=== PATIENT | male | born 1990 | race Caucasian/White ===

== ENCOUNTER 2016-10-16 15:36 | Day surgery (SDC) | payer OTHER ==
--- NOTE | 2016-10-16 15:50 | EDM.PDOC ---
ED HPI GENERAL MEDICAL PROBLEM - General Chief Complaint: Upper Extremity Injury/Pain Stated Complaint: RIGHT PINKY FINGER AMPUTATION Time Seen by Provider: 10/16/16 15:49 - History of Present Illness INITIAL COMMENTS - FREE TEXT/NARRATIVE: 26-year-old male presents emergency room with a right pinky finger amputation. A couple hours prior to arrival the patient got his finger caught in a hydraulic valve. The tip of the finger cannot be recovered. Patient is uncertain of his last tetanus shot.. He last ate around in today and his last drink of water was just prior to the injury. Past medical history noncontributory unremarkable. Treatments COMMUNITY SERVICE REPRESENTATIVE: Reports: Other (see below) Other Treatments COMMUNITY SERVICE REPRESENTATIVE: soaking in saline solution Right 5-Little finger Pain Score (Numeric/FACES): 5 - Related Data Allergies Allergy/AdvReac Type Severity Reaction Status Date / Time No Known Allergies Allergy Verified 10/16/16 17:38 Home Meds: Home Meds . [No Known Home Meds] 10/16/16 [History] Past Medical History - Past Health History Medical/Surgical History: Denies Medical/Surgical History Social & Family History - Tobacco Use Smoking Status *Q: Current Every Day Smoker Years of Tobacco use: 2 Packs/Tins Daily: 0.1 - Caffeine Use Caffeine Use: Reports: Coffee, Energy Drinks, Soda, Tea - Recreational Drug Use Recreational Drug Use: No Review of Systems - Review of Systems Review Of Systems: See Below Constitutional: Reports: No Symptoms Respiratory: Reports: No Symptoms Cardiovascular: Reports: No Symptoms GI/Abdominal: Reports: No Symptoms Neurological: Reports: No Symptoms ED EXAM, GENERAL - Physical Exam Exam: See Below Exam Limited By: No Limitations General Appearance: Alert, No Apparent Distress Head: Atraumatic, Normocephalic Neck: Normal Inspection, Supple Respiratory/Chest: No Respiratory Distress, Lungs Clear, Normal Breath Sounds Cardiovascular: Regular Rate, Rhythm, No Edema, No Murmur Extremities: Other (Examination of the right pinky finger shows he amputation of the distal tuft proximal to the nailbed and nail matrix and distal to the DIPJ) Course - Vital Signs Last Recorded V/S: Last Vital Signs Temp 36.7 C 10/16/16 15:40 Pulse 88 10/16/16 18:03 Resp 18 10/16/16 18:03 BP 128/90 10/16/16 18:03 Pulse Ox 98 10/16/16 18:03 - Orders/Labs/Meds Orders: Active Orders 24 hr Category Date Time Status Patient Status [ADT] Stat ADT 10/16/16 17:41 Active Communication Order [RC] ASDIRECTED Care 10/16/16 17:24 Active Communication Order [RC] ROUTINE Care 10/16/16 19:17 Active Elevate Extremity [RC] CONTINUOUS Care 10/16/16 17:24 Active Head of Bed Elevation [RC] ASDIRECTED Care 10/16/16 17:24 Active Ready for Discharge [RC] PER UNIT ROUTINE Care 10/16/16 17:28 Active Turn, Cough, Deep Breathe [RC] .PRN Care 10/16/16 17:24 Active Vaccines to be Administered [RC] PER UNIT ROUTINE Care 10/16/16 16:11 Active Vital Signs [RC] PER UNIT ROUTINE Care 10/16/16 17:24 Active Fingers Fifth Digit Rt F9 [CR] Stat Exams 10/16/16 16:10 Taken Acetaminophen/oxyCODONE [Percocet 325-5 MG] Med 10/16/16 17:26 Active 1 - 2 tab PO Q4H PRN HYDROmorphone [Dilaudid] Med 10/16/16 17:26 Active 0.5 mg IVPUSH Q2H PRN Ketorolac [Toradol] Med 10/16/16 17:26 Active 30 mg IVPUSH Q6H PRN Morphine [MS Contin] Med 10/16/16 17:30 Active 15 mg PO ONETIME Ondansetron [Zofran] Med 10/16/16 17:26 Active 4 mg IVPUSH Q4H PRN cefTRIAXone [Rocephin] 1 gm Med 10/16/16 19:15 Pending Sodium Chloride 0.9% [Normal Saline] 100 ml IV ONETIME Ice Therapy [OM.PC] Routine Oth 10/16/16 17:24 Ordered Schedule Procedure [COMM] Routine Oth 10/16/16 17:24 Ordered Schedule Procedure [COMM] Stat Oth 10/16/16 17:14 Ordered Medication Orders Hydromorphone HCl (Dilaudid) 0.5 mg IVPUSH Q2H PRN PRN Reason: Pain (severe 7-10) Ceftriaxone Sodium 1 gm/ (Sodium Chloride) 100 mls @ 200 mls/hr IV ONETIME CARLOS Ketorolac Tromethamine (Toradol) 30 mg IVPUSH Q6H PRN PRN Reason: Pain (severe 7-10) Morphine Sulfate (Ms Contin) 15 mg PO ONETIME CARLOS Ondansetron HCl (Zofran) 4 mg IVPUSH Q4H PRN PRN Reason: Nausea/Vomiting Oxycodone/Acetaminophen (Percocet 325-5 Mg) 1 - 2 tab PO Q4H PRN PRN Reason: Pain (severe 7-10) Meds: Medications Generic Name Dose Route Start Last Admin Trade Name Freq PRN Reason Stop Dose Admin Hydromorphone HCl 0.5 mg 10/16/16 17:26 Dilaudid IVPUSH Q2H PRN Pain (severe 7-10) Ceftriaxone Sodium 1 gm/ 100 mls @ 200 mls/hr 10/16/16 19:15 Sodium Chloride IV ONETIME CARLOS Ketorolac Tromethamine 30 mg 10/16/16 17:26 Toradol IVPUSH Q6H PRN Pain (severe 7-10) Morphine Sulfate 15 mg 10/16/16 17:30 Ms Contin PO ONETIME CARLOS Ondansetron HCl 4 mg 10/16/16 17:26 Zofran IVPUSH Q4H PRN Nausea/Vomiting Oxycodone/Acetaminophen 1 - 2 tab 10/16/16 17:26 Percocet 325-5 Mg PO Q4H PRN Pain (severe 7-10) Discontinued Medications Generic Name Dose Route Start Last Admin Trade Name Freq PRN Reason Stop Dose Admin Bupivacaine HCl Confirm 10/16/16 17:31 10/16/16 18:52 Marcaine 0.25% Administered 10/16/16 17:32 6 ml Dose Administration 30 ml .ROUTE .STK-MED ONE Cefazolin Sodium Confirm 10/16/16 18:46 Ancef Administered 10/16/16 18:47 Dose 1 gm .ROUTE .STK-MED ONE Diphtheria/Tetanus/Acell Pertussis 0.5 ml 10/16/16 16:11 10/16/16 16:18 Boostrix IM 10/16/16 16:12 0.5 ml .ONCE ONE Administration Fentanyl Confirm 10/16/16 16:31 10/16/16 16:44 Sublimaze Administered 10/16/16 16:32 Not Given Dose 100 mcg .ROUTE .STK-MED ONE Fentanyl 50 mcg 10/16/16 16:40 10/16/16 16:41 Sublimaze IVPUSH 10/16/16 16:41 50 mcg ONETIME ONE Administration Fentanyl Confirm 10/16/16 17:49 Sublimaze Administered 10/16/16 17:50 Dose 100 mcg .ROUTE .STK-MED ONE Fentanyl Confirm 10/16/16 18:26 Sublimaze Administered 10/16/16 18:27 Dose 100 mcg .ROUTE .STK-MED ONE Cefazolin Sodium 1,000 mg/ 50 mls @ 200 mls/hr 10/16/16 16:34 10/16/16 16:55 Sodium Chloride IV 10/16/16 16:48 Not Given ONETIME ONE Cefazolin Sodium/Dextrose 1 gm 50 mls @ 100 mls/hr 10/16/16 16:49 10/16/16 16 :53 / Premix IV 10/16/16 17:18 100 mls/hr ONETIME ONE Administration Ceftriaxone Sodium 1 gm/ 100 mls @ 200 mls/hr 10/16/16 17:26 10/16/16 17:56 Sodium Chloride IV 10/16/16 17:55 200 mls/hr ONETIME ONE Administration Lactated Ringer's Confirm 10/16/16 19:08 Ringers, Lactated Administered 10/16/16 19:09 Dose 1,000 mls @ as directed .ROUTE .STK-MED ONE Iodine Confirm 10/16/16 17:35 10/16/16 18:50 Iodine 2% Mild Tincture Administered 10/16/16 17:36 9 ml Dose Administration 30 ml .ROUTE .STK-MED ONE Lidocaine HCl Confirm 10/16/16 17:47 Xylocaine-Mpf 0.5% Administered 10/16/16 17:48 Dose 50 ml .ROUTE .STK-MED ONE Midazolam HCl Confirm 10/16/16 17:49 Versed 1 Mg/Ml Administered 10/16/16 17:50 Dose 2 mg .ROUTE .STK-MED ONE Midazolam HCl Confirm 10/16/16 18:25 Versed 1 Mg/Ml Administered 10/16/16 18:26 Dose 2 mg .ROUTE .STK-MED ONE Midazolam HCl Confirm 10/16/16 18:37 Versed 1 Mg/Ml Administered 10/16/16 18:38 Dose 2 mg .ROUTE .STK-MED ONE Ondansetron HCl Confirm 10/16/16 19:02 Zofran Administered 10/16/16 19:03 Dose 4 mg .ROUTE .STK-MED ONE Sodium Bicarbonate Confirm 10/16/16 17:47 Sodium Bicarbonate 8.4% Administered 10/16/16 17:48 Dose 50 meq .ROUTE .STK-MED ONE - Re-Assessments/Exams Free Text/Narrative Re-Assessment/Exam: 10/16/16 17:39 X-ray examination was obtained. Case was discussed with Dr. Rebolledo who will irrigate debride and close this tonight.. Patient's tetanus was updated he received a gram of Ancef. Departure - Departure Time of Disposition: 17:52 Disposition: DC/Tfer to [facility] Clinical Impression: Partial traumatic transphalangeal amputation of finger - Discharge Information - My Orders Last 24 Hours: My Active Orders 10/16/16 16:10 Fingers Fifth Digit Rt F9 [CR] Stat 10/16/16 16:11 Vaccines to be Administered [RC] PER UNIT ROUTINE 10/16/16 17:41 Patient Status [ADT] Stat - Assessment/Plan Last 24 Hours: My Active Orders 10/16/16 16:10 Fingers Fifth Digit Rt F9 [CR] Stat 10/16/16 16:11 Vaccines to be Administered [RC] PER UNIT ROUTINE 10/16/16 17:41 Patient Status [ADT] Stat
[2016-10-16] MEDS ORDERED: Diphtheria,Pertussis(Acell),Tetanus Vaccine 0.5 ML SDV inactive IM ONE (16:11)
[2016-10-16] MEDS ORDERED: fentaNYL 100 MCG/2 ML SDV ONE ×3 (16:31→18:26)
[2016-10-16] MEDS ORDERED: fentaNYL 100 MCG/2 ML SDV IVPUSH ONE (16:40)
[2016-10-16] MEDS ORDERED: ceFAZolin 1 GM in Premix Bag 1 BAG IV ONE (16:49)
--- NOTE | 2016-10-16 17:23 | PCM.PREANE ---
Preanesthetic Assessment - Procedure Proposed Procedure: Repair left finger amputation - Anesthesia/Transfusion/Family Hx Anesthesia History: Prior Anesthesia Without Reaction Family History of Anesthesia Reaction: No Transfusion History: No Prior Transfusion(s) - Review of Systems General: No Symptoms Pulmonary: No Symptoms Cardiovascular: No Symptoms Gastrointestinal: No symptoms Neurological: No Symptoms Other: Reports: Easy Bleeding - Physical Assessment NPO Status Date: 10/16/16 NPO Status Time: 12:00 O2 Sat by Pulse Oximetry: 100 Respiratory Rate: 20 Vital Signs: Last Vital Signs Temp 36.7 C 10/16/16 15:40 Pulse 83 10/16/16 15:40 Resp 20 10/16/16 15:40 BP 139/98 H 10/16/16 15:40 Pulse Ox 100 10/16/16 15:40 Height: 1.73 m Weight: 68.039 kg ASA Class: 1 Mental Status: Alert & Oriented x3 Airway Class: Mallampati = 1 Dentition: Reports: Normal Dentition Thyro-Mental Finger Breadths: 3 Mouth Opening Finger Breadths: 3 ROM/Head Extension: Full Lungs: Clear to auscultation, Normal respiratory effort Cardiovascular: Regular Rate, Regular Rhythm - Allergies Allergies/Adverse Reactions: Allergies Allergy/AdvReac Type Severity Reaction Status Date / Time No Known Allergies Allergy Verified 10/16/16 15:48 - Blood Blood Available: No Product(s) Available: None - Anesthesia Plan Pre-Op Medication Ordered: None - Acknowledgements Anesthesia Type Planned: ISAAC Pt an Appropriate Candidate for the Planned Anesthesia: Yes Alternatives and Risks of Anesthesia Discussed w Pt/Guardian: Yes Pt/Guardian Understands and Agrees with Anesthesia Plan: Yes PreAnesthesia Questionnaire - Past Health History Medical/Surgical History: Denies Medical/Surgical History - SUBSTANCE USE Smoking Status *Q: Current Every Day Smoker Tobacco Use Within Last Twelve Months: Snuff/Dip Recreational Drug Use History: No - HOME MEDS Home Medications: Home Meds . [No Known Home Meds] 10/16/16 [History] - CURRENT (IN HOUSE) MEDS Current Meds: Current Medications Cefazolin Sodium/Dextrose 1 gm (/ Premix) 50 mls @ 100 mls/hr IV ONETIME ONE Stop: 10/16/16 17:18 Last Admin: 10/16/16 16:53 Dose: 100 mls/hr Discontinued Medications Diphtheria/Tetanus/Acell Pertussis (Boostrix) 0.5 ml IM .ONCE ONE Stop: 10/16/16 16:12 Last Admin: 10/16/16 16:18 Dose: 0.5 ml Fentanyl (Sublimaze) Confirm Administered Dose 100 mcg .ROUTE .STK-MED ONE Stop: 10/16/16 16:32 Last Admin: 10/16/16 16:44 Dose: Not Given Fentanyl (Sublimaze) 50 mcg IVPUSH ONETIME ONE Stop: 10/16/16 16:41 Last Admin: 10/16/16 16:41 Dose: 50 mcg Cefazolin Sodium 1,000 mg/ (Sodium Chloride) 50 mls @ 200 mls/hr IV ONETIME ONE Stop: 10/16/16 16:48 Last Admin: 10/16/16 16:55 Dose: Not Given
[2016-10-16] MEDS ORDERED: Ondansetron 4 MG/2 ML SDV IVPUSH PRN (17:26)
[2016-10-16] MEDS ORDERED: cefTRIAXone 1 GM in Sodium Chloride 0.9% 100 ML IV ONE ×2 (17:26→19:15)
[2016-10-16] MEDS ORDERED: Ketorolac 30 MG/ML SDV IVPUSH PRN (17:26)
[2016-10-16] MEDS ORDERED: HYDROmorphone 0.5 MG/0.5 ML Syringe IVPUSH PRN (17:26)
[2016-10-16] MEDS ORDERED: Acetaminophen/oxyCODONE 325-5 MG Tab PO PRN (17:26)
[2016-10-16] MEDS ORDERED: Morphine 15 MG Tab.ER PO SCH (17:30)
[2016-10-16] MEDS ORDERED: Bupivacaine 0.25% 30 ML SDV ONE (17:31)
[2016-10-16] MEDS ORDERED: Iodine/Sodium Iodide 2% Tincture 30 ML Bottle ONE (17:35)
[2016-10-16] MEDS ORDERED: Sodium Bicarbonate 8.4% 50 MEQ/50 ML SDV ONE (17:47)
[2016-10-16] MEDS ORDERED: Lidocaine 0.5% 50 ML SDV ONE (17:47)
[2016-10-16] MEDS ORDERED: Midazolam 1 MG/ML 2 ML SDV ONE ×3 (17:49→18:37)
[2016-10-16] MEDS ORDERED: ceFAZolin 1 GM Vial ONE (18:46)
[2016-10-16] MEDS ORDERED: Ondansetron 4 MG/2 ML SDV ONE (19:02)
[2016-10-16] MEDS ORDERED: Lactated Ringers 1,000 ML ONE (19:08)
--- NOTE | 2016-10-16 19:16 | PCM48HPAN ---
Post Anesthesia Note - EVALUATION WITHIN 48HRS OF ANESTHETIC Vital Signs in Normal Range: Yes Patient Participated in Evaluation: Yes Respiratory Function Stable: Yes Airway Patent: Yes Cardiovascular Function Stable: Yes Hydration Status Stable: Yes Pain Control Satisfactory: Yes Nausea and Vomiting Control Satisfactory: Yes Mental Status Recovered: Yes
[2016-10-16 20:21] VITALS: BP 124/84
--- NOTE | 2016-10-16 23:11 | HP ---
DATE OF ADMISSION: 10/16/2016 HISTORY OF PRESENT ILLNESS: This is the first orthopedic outpatient admission for surgery for this 26-year- old male, who is being admitted with acute crush injury with traumatic amputation of the distal tip of the right small finger with significant oil contamination. 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 immediately we brought to the emergency room, evaluated, orthopedic evaluation found the amputation and significant examination about the hand area and the patient stopped being scheduled for the surgical irrigation and debridement. Reconstruction of the amputation site of the right small finger. Procedure has been outlined to him. He understands the procedure and the and the complication especially with the potential for infection with this type of injury and has consented to the surgical procedure. ALLERGIES: No known drug allergies. PAST MEDICAL HISTORY: A healthy 26-year-old male. CURRENT MEDICATIONS: Currently on no medications. PAST SURGICAL HISTORY: Positive. He had a previous appendectomy. Notes no anesthesia or complications. REVIEW OF SYSTEMS: The patient is a nonsmoker and nondrinker. He has a negative bleeding history, negative blood clot history. PHYSICAL EXAMINATION: GENERAL: Today, reveals a well-developed, well-nourished, 26-year-old male, in mvalcuts-yh-bmbhdi distress. HEAD, EYES, EARS, NOSE, AND THROAT: Normocephalic. NECK: Supple. CHEST: Clear. COR: Regular rate. ABDOMEN: Soft. : Intact. MUSCULOSKELETAL: Examination of the right hand small finger reveals a complete amputation of the distal two-thirds of the right small finger distal to the DIP joint. There was significant oil contamination about the hand area as a result the patient working at an oil rig. RADIOGRAPHIC STUDIES: X-rays today revealed a complete loss of the distal 2/3 of the distal phalanx and soft tissues of the small finger of the right hand with crush injury amputation. ASSESSMENT: 1. Crush injury of right small finger. 2. Traumatic amputation distal 2/3 right small finger distal phalanx. PLAN: Will be for the patient to undergo surgical treatment today in the form of irrigation debridement or amputation reconstruction of the right small finger. Procedures were outlined to the patient. He understands that in the postoperative recovery phase. MMODAL /[id number]
--- NOTE | 2016-10-19 08:33 | CONS ---
CONSULTING PHYSICIAN: Robert Rebolledo MD DATE OF CONSULTATION: 10/16/2016 HISTORY: Orthopedic consultation called for by Dr. Daniels, our emergency room physician for evaluation of crush injury to right small finger. 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 The injury itself cause a complete loss of the distal tip of the small finger of the right hand. No other injuries were noted. 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 The patient was brought in the emergency room and evaluated by Dr. Daniels with a crush injury and amputation, was referred to the Orthopedic Clinic for evaluation. On questioning, the patient notes no changes at this point other than the injury to his right small finger. PHYSICAL EXAMINATION: Today reveals an evaluation of right upper extremity and hand area shows the crush injury across the just distal to the DIP joint, complete loss of the nail bed and distal tip of the finger leaving only the proximal portion of the phalanx fracture, which was present that exposed. The x-rays reveal a loss of the distal tip of the right small finger approximately 2/3, complete loss. IMPRESSION: Acute traumatic amputation, distal right small finger with open fracture, PLAN: The plan will be for the patient to be scheduled for outpatient surgery, which include irrigation, debridement, and reconstruction of the amputation site and the patient will be then scheduled for that. The procedure was outlined to him. He understands that and has consented to it. CASEYODAL /[id number]
--- NOTE | 2016-10-19 08:37 | OR ---
DATE OF OPERATION: 10/16/2016 SURGEON: Robert Rebolledo MD PREOPERATIVE DIAGNOSIS: Acute traumatic crush injury with amputation of distal 3rd small finger of right hand distal phalanx. POSTOPERATIVE DIAGNOSIS: Acute traumatic crush injury with amputation of distal 3rd small finger of right hand distal phalanx. ANESTHESIA: Sedation with [place] block and digital block to right small finger. OPERATION PERFORMED: 1. Irrigation and debridement of severely contaminated open crush injury, traumatic amputation, distal portion of right small finger. 2. Repair and reconstruction amputation, tip of right small finger. DESCRIPTION OF PROCEDURE: The patient was taken to the operative room in supine position, was placed under a light sedation with Julia block anesthesia of the right upper extremity. The right arm was then prepped and draped by standard technique and after prepping and draping, the operation proceeded with a local 0.5% Marcaine digital block. Then, the operation proceeded with thorough irrigation and debridement of a severely contaminated crush injury of the distal tip of the right small finger at the DIP joint. Once the irrigation and debridement was completed, the operation proceeded with excising the metaphyseal portion of distal phalanx by sharp excision releasing the flexor and extensor tendons. Once that was completed, again a thorough irrigation was carried out and further debridement was performed. There was enough skin just to bring the skin together over the tip of the small finger at the amputation site and then by taking care to make sure the debridement was completed with irrigation, the operation proceeded with closure of the laceration and the skin edges with interrupted 5-0 Prolene. Once the skin was closed, the operation then proceeded with standard dressings being applied to the small finger with a splint application. The patient tolerated this whole procedure well. He left the operative room in stable condition to his room for recovery. ESTIMATED BLOOD LOSS: MMODAL /[id number]
--- NOTE | 2016-10-20 09:34 | CR ---
Right fifth finger: Three views of the right fifth finger were obtained. Soft tissue and bony amputation is seen within the distal fifth finger at the level of the distal phalanx. No proximal fracture or other abnormality is seen. Impression: 1. Soft tissue and bony amputation of the distal fifth finger. Diagnostic code #3
== END 2016-10-16 20:05 | disposition home or self-care (01) ==
LOC: JD.ED 15:36 → JD.SDS 17:17
PROVIDERS: ATTEND Specialist
PROC: 0HBQXZZ Excision of Finger Nail, External Approach (ICD-10-PCS; principal; 2016-10-16)
PROC: 0PBT0ZZ Excision of Right Finger Phalanx, Open Approach (ICD-10-PCS; 2016-10-16)
DX: S68.626A Partial traumatic transphalangeal amputation of right little finger, initial encounter (principal); W31.82XA Contact with other commercial machinery, initial encounter; Y93.89 Activity, other specified; Y92.65 Oil rig as the place of occurrence of the external cause; Y99.0 Civilian activity done for income or pay; F17.210 Nicotine dependence, cigarettes, uncomplicated; Z23 Encounter for immunization
CPT/HCPCS: 26236; 73140; 90471; 96365; 96375; 99285; A9270; J0690; J0696; J2250; J2405; J3010; J7030; J7120; 01830; 90715; 99284; J3490